=== PATIENT | male | born 1985 | race Caucasian/White ===

== ENCOUNTER 2019-10-02 18:31 | Emergency (ER) | payer MEDICAID ==
[~2019-10-02] VITALS: Ht 190.5 cm; Wt 91.5 kg
--- NOTE | 2019-10-02 19:04 | NUR ---
ERP AT BEDSIDE
--- NOTE | 2019-10-02 19:06 | NUR ---
THIS IS A 34Y M THAT COMES IN TODAY FOR "FEELING LIKE CRAP" PT STS HE HAS BEEN SORE, TIRED AND KIND OF SHORT OF BREATH STARTING TODAY. PT REPORTS N/V BUT HAS BEEN ABLE TO TAKE PO INTAKE. PT CONNECTED TO ALL MONITORING VSS NADN.
[2019-10-02 19:12] VITALS: BP 119/86
[2019-10-02 19:19] LABS: BASOPHILS # (AUTO) 0.04 x10^3/uL (0-0.1); BASOPHILS % (AUTO) 1 % (0-1); EOSINOPHILS # (AUTO) 0.17 x10^3/uL (0-0.4); EOSINOPHILS % (AUTO) 2 % (1-7); LYMPHOCYTES % (AUTO) 31 % (22-44); MD NO; MEAN CORPUSCULAR HEMOGLOBIN 31.5 pg (27.5-34.5); MEAN CORPUSCULAR HGB CONC 33.5 g/dL (33.2-36.2); MEAN PLATELET VOLUME 8.4 fL (7.4-10.4); MONOCYTES # (AUTO) 0.52 x10^3/uL (0.2-0.8); MONOCYTES % (AUTO) 6 % (2-9); NEUTROPHILS % (AUTO) 62 % (42-75); PLATELET COUNT 272 x10^3/uL (130-400); RED BLOOD COUNT 5.46 x10^6/uL (4.38-5.82)
[2019-10-02 19:31] LABS: ALBUMIN 4.3 g/dL (3.4-5.0); ANION GAP 7 mmol/L (5-15); CALCIUM 8.9 mg/dL (8.5-10.1); CHLORIDE 106 mmol/L (98-107); CREATININE 1.11 mg/dL (0.7-1.3)
== END 2019-10-02 20:39 | disposition home or self-care (01) ==
LOC: ED 19:01
DX: R06.00 Dyspnea, unspecified (principal); Z20.828 Contact with and (suspected) exposure to other viral communicable diseases; M79.10 Myalgia, unspecified site; R94.31 Abnormal electrocardiogram [ECG] [EKG]; F17.200 Nicotine dependence, unspecified, uncomplicated
CPT/HCPCS: 36415; 71045; 80048; 82040; 85025; 87635; 93005; 99285